=== PATIENT | male | born 1985 | race American Indian/Alaskan Native ===

== ENCOUNTER 2017-08-24 06:26 | Day surgery (SDC) | payer BC ==
[2017-08-24] MEDS ORDERED: Propofol 10 mg/ml Inj (20 ML) ONE ×2 (07:57→08:57)
[2017-08-24] MEDS ORDERED: Midazolam 2 MG/2 ML VIAL ONE (07:58)
[2017-08-24] MEDS ORDERED: Lidocaine Hydrochloride 5 ML INJ ONE (07:58)
[2017-08-24] MEDS ORDERED: Lactated Ringer's 1,000 ML IV ONE (08:05)
[2017-08-24 09:16] VITALS: TEMP 98.4; O2SAT 100
[2017-08-24 09:59] VITALS: RESP 14
[2017-08-24 10:00] VITALS: BP 126/82; PULSE 73
== END 2017-08-24 10:35 | disposition home or self-care (01) ==
LOC: C.ENDO 06:26
PROVIDERS: ATTEND Internal Medicine Gastroenterology
DX: D50.9 Iron deficiency anemia, unspecified (principal); J45.909 Unspecified asthma, uncomplicated; Z79.51 Long term (current) use of inhaled steroids; K44.9 Diaphragmatic hernia without obstruction or gangrene; K29.70 Gastritis, unspecified, without bleeding; B96.81 Helicobacter pylori [H. pylori] as the cause of diseases classified elsewhere; K64.0 First degree hemorrhoids
CPT/HCPCS: 43239; 45378; 88305; J2250; J2704; J7120